=== PATIENT | female | born 1995 ===

== ENCOUNTER 2019-10-10 16:43 | Emergency (ER) | payer SELFPAY ==
--- NOTE | 2019-10-10 17:33 | UC ---
Dental HPI - HPI Summary HPI Summary: 24 yo female presents with dental pain. She tells me that she knows she has bad teeth - especially in her lower right mouth. She has not seen a dentist in years. Over the last 3-4 days she has had pain and swelling to the right lower gums with occasionally bleeding at the tooth-gum line. She has a friend who is an [employer] and amoxicillin was prescribed over the phone - pt has taken amoxicillin 500mg TID for 1 day with no improvement. She has been taking ibuprofen as directed with little relief of her pain. She is able to eat and drink, but pain increases on her right lower jaw. Denies fever or chills. - History of Current Complaint Stated Complaint: JAW PAIN Time Seen by Provider: 10/10/19 17:33 Hx Obtained From: Patient Onset/Duration: Gradual Onset Severity: Severe Pain Intensity: 9 Pain Scale Used: 0-10 Numeric - Allergies/Home Medications Allergies/Adverse Reactions: Allergies Allergy/AdvReac Type Severity Reaction Status Date / Time No Known Allergies Allergy Verified 03/11/16 07:01 PMH/Surg Hx/FS Hx/Imm Hx - Additional Past Medical History Additional PMH: None - Surgical History Surgical History: None - Family History Known Family History: Positive: Hypertension - Social History Occupation: Employed Full-time Lives: With Family Alcohol Use: Occasionally Substance Use Type: None Smoking Status (MU): Never Smoked Tobacco Review of Systems All Other Systems Reviewed And Are Negative: No Constitutional: Positive: Negative Skin: Positive: Negative Eyes: Positive: Negative ENT: Positive: Dental Pain Respiratory: Positive: Negative Cardiovascular: Positive: Negative Gastrointestinal: Positive: Negative Neurovascular: Positive: Negative Neurological: Positive: Negative Psychological: Positive: Negative Physical Exam - Summary Physical Exam Summary: GENERAL: NAD. WDWN. No pain distress. SKIN: No rashes, sores, lesions, or open wounds. HEENT: Head: AT/NC Nose: Nasal mucosa pink and moist. NTTP maxillary and frontal sinus. Throat: Posterior oropharynx without exudates, erythema, or tonsillar enlargement. Uvula midline. NECK: Supple. Nontender. No lymphadenopathy. CHEST: CTAB. No accessory muscle use. Breathing comfortably and in no distress. CV: RRR. Pulses intact. Cap refill <2seconds NEURO: Alert. PSYCH: Age appropriate behavior. Triage Information Reviewed: Yes Vital Signs: Vital Signs: Temp Pulse Resp BP Pulse Ox 100.0 F 91 16 146/90 100 10/10/19 17:52 10/10/19 17:52 10/10/19 17:52 10/10/19 17:52 10/10/19 17:52 Vital Signs Reviewed: Yes Dental: Positive: Percussion Tenderness @ - Tooth 29 and 30, Gross Decay/Caries @ - throughout, Dental Fracture @ - Tooth 29 and 30, Abscess @ - Tooth 29 and 30 , Cellulitis @ - Tooth 29 and 30, Bleeding - Tooth 29 and 30. Negative: Cervical Lymphadenopathy Dental Complaint Course/Dx - Course Course Of Treatment: istop: Reference #: [id number] Tooth 29 and 30 abscess and cellulitis - Differential Dx/Diagnosis Provider Diagnosis: Dental abscess Discharge ED - Sign-Out/Discharge Documenting (check all that apply): Patient Departure All imaging exams completed and their final reports reviewed: No Studies - Discharge Plan Condition: Stable Disposition: HOME Prescriptions: Clindamycin HCl 300 mg PO TID #21 capsule Lidocaine 2% VISCOUS* [Xylocaine 2% Viscous*] 15 ml SWISH SPIT Q4H PRN #250 ml PRN Reason: Pain - Mild Tramadol HCl 50 mg PO BID PRN #8 tablet MDD 2 PRN Reason: Pain - Severe Patient Education Materials: Dental Abscess (ED) Referrals: No Primary Care Phys,NOPCP [Primary Care Provider] - Additional Instructions: If you develop a fever, shortness of breath, chest pain, new or worsening symptoms - please call your PCP or go to the ED immediately. Please schedule an appointment with a dentist as soon as possible (within 1 week ) for further evaluation and treatment of your dental infection - Billing Disposition and Condition Condition: STABLE Disposition: Home
== END 2019-10-10 17:55 | disposition home or self-care (01) ==
LOC: UCEAST 16:43
DX: K04.7 Periapical abscess without sinus (principal)
CPT/HCPCS: 99202; G0463